=== PATIENT | female | born 1935 | race Hispanic/Latino ===

== ENCOUNTER → 2020-06-25 | Outpatient (CLI) | payer OTHER, MEDICARE | END | disposition home or self-care (01) | LOC: SHCH 13:20 | PROVIDERS: ATTEND Internal Medicine Cardiovascular Disease | DX: R55 Syncope and collapse (principal); I10 Essential (primary) hypertension; E78.5 Hyperlipidemia, unspecified | CPT/HCPCS: 93306; 93356 ==

== ENCOUNTER 2020-07-21 09:00 | Observation (INO) | payer OTHER, MEDICARE ==
[~2020-07-21] VITALS: Ht 165.1 cm; Wt 65.5 kg
[2020-07-21 09:51] LABS: BASOPHILS % (AUTO) 0.3 % (0.0-5.0); EOSINOPHILS % (AUTO) 1.6 % (0.0-8.0); HEMATOCRIT 40.2 % (36-48); LYMPHOCYTES % (AUTO) 19.5 % (21.0-51.0); MEAN CORPUSCULAR HGB CONC 31.6 g/dL (32.0-36.0); MONOCYTES % (AUTO) 8.8 % (3.0-13.0); NEUTROPHILS % (AUTO) 69.5 % (40.0-77.0); PLATELET COUNT (AUTO) 314 K/uL (130-400); RED BLOOD CELL COUNT(AUTO) 4.23 MIL/uL (4.00-5.50); RED CELL DISTRIBUTION WIDTH 12.6 % (11.0-15.5); WHITE BLOOD COUNT (AUTO) 7.6 K/uL (4.8-10.8)
[2020-07-21 09:57] LABS: CREATININE 1.1 mg/dL (0.5-1.5); POTASSIUM 4.1 mmol/L (3.5-5.1)
[2020-07-21 10:06] LABS: INR 0.9 (0.85-1.15); PROTHROMBIN TIME 9.8 SEC (9.6-11.6)
[2020-07-21 10:21] LABS: APPEARANCE,URINE CLOUDY (CLEAR); BILIRUBIN,URINE NEGATIVE (NEGATIVE); COLOR,URINE YELLOW (YELLOW); GLUCOSE, URINE (UA) NEGATIVE (NEGATIVE); KETONES,URINE NEGATIVE (NEGATIVE); LEUKOCYTE ESTERASE ,URINE SMALL (NEGATIVE); NITRATE,URINE POSITIVE (NEGATIVE); OCCULT BLOOD,URINE MODERATE (NEGATIVE); PH,URINE 5.5 (5.0-8.0); PROTEIN,URINE NEGATIVE (NEGATIVE); UROBILINOGEN,URINE 0.2 mg/dL (0.2-1.0)
[2020-07-21 10:24] LABS: BACTERIA,URINE Few /HPF (None Seen); RBC,URINE 0-1 /HPF (0-1); SQUAMOUS EPITHELIAL CELL,UR Rare /HPF (0-2)
[2020-07-21 10:25] LABS: AMORPHOUS SEDIMENT,UR Moderate /LPF (None Seen)
[2020-07-27 14:15] VITALS: BP 152/60
[2020-07-27] MEDS ORDERED: SIMV40TA59 PO (16:13)
[2020-07-27] MEDS ORDERED: AMLO-258 PO (16:15)
[2020-07-27] MEDS ORDERED: MECL-160 PO (16:15)
[2020-07-27] MEDS ORDERED: LISI40TA4 PO (16:15)
[2020-07-28] VITALS (24 sets, daily range): BP systolic 97–145; BP diastolic 41–85
[2020-07-28] MEDS ORDERED: CEFAZOLIN SODIUM 1 GM VIAL IVP ONE (08:00)
[2020-07-28] MEDS ORDERED: GENTAMICIN SULFATE 240 MG in SODIUM CHLORIDE 0.9% 100 ML IV PRN (08:00)
[2020-07-28] MEDS ORDERED: GENTAMICIN PROTOCOL PER PHARMACY IV SCH (08:00)
[2020-07-28] MEDS ORDERED: LACTATED RINGERS 1000ML 1,000 ML IV ONE ×2 (09:35→09:54)
[2020-07-28] MEDS ORDERED: CEFAZOLIN SODIUM 1 GM VIAL ONE ×3 (09:54→20:06)
[2020-07-28] MEDS ORDERED: GENTAMICIN SULFATE 240 MG in SODIUM CHLORIDE 0.9% 100 ML IV SCH (10:30)
[2020-07-28] MEDS ORDERED: CELECOXIB 200 MG CAP ONE (12:31)
[2020-07-28] MEDS ORDERED: ACETAMINOPHEN EXTRA STRENGTH 500 MG TABLET ONE (12:31)
[2020-07-28] MEDS ORDERED: KETOROLAC TROMETHAMINE 30MG/ML ONE (12:31)
[2020-07-28] MEDS ORDERED: TRANEXAMIC ACID 1000MG/10ML ONE ×2 (12:33→16:54)
[2020-07-28] MEDS ORDERED: GLYCOPYRROLATE 1 MG/5 ML SYRINGE ONE (14:12)
[2020-07-28] MEDS ORDERED: LIDOCAINE PF 2% 5ML ABBOJECT ONE (14:12)
[2020-07-28] MEDS ORDERED: SUCCINYLCHOLINE CHLORIDE 20 MG/ML 10 ML VIAL ONE ×2 (14:12→14:13)
[2020-07-28] MEDS ORDERED: PROPOFOL 10 MG/ML 20ML VIAL IV ONE (14:13)
[2020-07-28] MEDS ORDERED: ROCURONIUM 10MG/1ML SYR 10 MG/ML ML ONE (14:13)
[2020-07-28] MEDS ORDERED: ONDANSETRON HCL 4 MG/2 ML VIAL ONE (14:13)
[2020-07-28] MEDS ORDERED: FENTANYL CITRATE PF 50 MCG/1 ML 2ML VIAL ONE (14:13)
[2020-07-28] MEDS ORDERED: NEOSTIGMINE 5MG/5ML SYR IV ONE (14:13)
[2020-07-28] MEDS ORDERED: ROPIVACAINE 0.5% 5MG/ML 30ML IJ ONE (14:24)
[2020-07-28] MEDS ORDERED: TRAMADOL HCL 50 MG TABLET PO PRN (16:15)
[2020-07-28] MEDS ORDERED: ONDANSETRON HCL 4 MG/2 ML VIAL IVP PRN (16:15)
[2020-07-28] MEDS ORDERED: KETOROLAC TROMETHAMINE 15MG/ML IV PRN (16:15)
[2020-07-28] MEDS ORDERED: POTASSIUM CHLORIDE 20 MEQ ERTAB PO PRN (16:15)
[2020-07-28] MEDS ORDERED: POTASSIUM CHLORIDE 10% ELIXIR 20 MEQ/15 ML UDCUP PO PRN (16:15)
[2020-07-28] MEDS ORDERED: POTASSIUM CHLORIDE 20MEQ/100ML 100 ML IV PRN (16:15)
[2020-07-28] MEDS ORDERED: OXYCODONE HCL 5 MG TAB PO PRN ×2 (16:15)
[2020-07-28] MEDS ORDERED: LIDOCAINE HCL-MPF 1% 2ML VIAL IV PRN (16:15)
[2020-07-28] MEDS: ACETAMINOPHEN EXTRA STRENGTH 500 MG TABLET PO SCH ×2 (16:15→20:13)
[2020-07-28] MEDS ORDERED: FERROUS FUMARATE 324 MG TABLET PO PRN (16:15)
[2020-07-28] MEDS ORDERED: TEMAZEPAM 15 MG CAPSULE PO PRN (16:15)
[2020-07-28] MEDS ORDERED: CALCIUM CARBONATE 500 MG TABLET PO PRN (16:15)
[2020-07-28] MEDS ORDERED: DiphenhydrAMINE HCL 50 MG/ML VIAL IVP PRN (16:15)
[2020-07-28] MEDS: SODIUM CHLORIDE 0.9% 1000ML 1,000 ML IV SCH (18:00)
[2020-07-28] MEDS: MECLIZINE HCL 25 MG TABLET PO SCH (20:12)
[2020-07-28] MEDS: CELECOXIB 200 MG CAP PO SCH (20:13)
[2020-07-28] MEDS: FAMOTIDINE 20MG TAB 20 MG TAB PO SCH (20:13)
[2020-07-28] MEDS: CEFAZOLIN SODIUM 1 GM VIAL IVP SCH (20:13)
[2020-07-28] MEDS: ASPIRIN 81MG TAB.CHEW PO SCH (20:13)
[2020-07-28] MEDS: PREGABALIN 25 MG CAP PO SCH (20:13)
[2020-07-28] MEDS: SIMVASTATIN 20 MG TABLET PO SCH (21:37)
[2020-07-29] VITALS (7 sets, daily range): BP systolic 93–140; BP diastolic 41–72
[2020-07-29] MEDS: SODIUM CHLORIDE 0.9% 1000ML 1,000 ML IV SCH ×2 (01:43→12:15)
[2020-07-29] MEDS: CEFAZOLIN SODIUM 1 GM VIAL IVP SCH (04:22)
[2020-07-29 05:06] LABS: MEAN CORPUSCULAR HGB CONC 32.1 g/dL (32.0-36.0); MEAN CORPUSCULAR VOLUME 93.3 fL (79-99); RED CELL DISTRIBUTION WIDTH 12.2 % (11.0-15.5); WHITE BLOOD COUNT (AUTO) 8.3 K/uL (4.8-10.8)
[2020-07-29 05:34] LABS: CREATININE 0.9 mg/dL (0.5-1.5); POTASSIUM 3.9 mmol/L (3.5-5.1)
[2020-07-29] MEDS: POLYETHYLENE GLYCOL 3350 17 GM POWD.PACK PO SCH (08:43)
[2020-07-29] MEDS: ACETAMINOPHEN EXTRA STRENGTH 500 MG TABLET PO SCH ×3 (08:44→23:59)
[2020-07-29] MEDS: MECLIZINE HCL 25 MG TABLET PO SCH ×2 (08:44→20:08)
[2020-07-29] MEDS: ASPIRIN 81MG TAB.CHEW PO SCH (08:45)
[2020-07-29] MEDS: PREGABALIN 25 MG CAP PO SCH ×2 (08:45→20:08)
[2020-07-29] MEDS: CELECOXIB 200 MG CAP PO SCH ×2 (08:45→20:31)
[2020-07-29] MEDS: FAMOTIDINE 20MG TAB 20 MG TAB PO SCH ×2 (08:45→20:08)
[2020-07-29] MEDS ORDERED: LISINOPRIL 40 MG TABLET PO SCH (09:00)
[2020-07-29] MEDS ORDERED: AMLODIPINE BESYLATE 5 MG TAB PO SCH (09:00)
[2020-07-29] MEDS ORDERED: APIXABAN 2.5 MG TABLET PO SCH (11:30)
[2020-07-29] MEDS ORDERED: APIXABAN 2.5 MG TABLET PO ONE (12:46)
[2020-07-29] MEDS: APIXABAN 2.5 MG TABLET PO SCH (20:08)
[2020-07-29] MEDS: SIMVASTATIN 20 MG TABLET PO SCH (20:08)
[2020-07-30] VITALS: BP 93/44
[2020-07-30 03:57] VITALS: BP 97/45
[2020-07-30 08:07] VITALS: BP 127/62
[2020-07-30] MEDS: FAMOTIDINE 20MG TAB 20 MG TAB PO SCH (08:25)
[2020-07-30] MEDS: CELECOXIB 200 MG CAP PO SCH (08:25)
[2020-07-30] MEDS: APIXABAN 2.5 MG TABLET PO SCH (08:25)
[2020-07-30] MEDS: ACETAMINOPHEN EXTRA STRENGTH 500 MG TABLET PO SCH ×2 (08:27→17:21)
[2020-07-30] MEDS: POLYETHYLENE GLYCOL 3350 17 GM POWD.PACK PO SCH (08:27)
[2020-07-30] MEDS: PREGABALIN 25 MG CAP PO SCH (09:00)
[2020-07-30] MEDS ORDERED: LISINOPRIL 20 MG TABLET PO SCH (09:00)
[2020-07-30] MEDS: MECLIZINE HCL 25 MG TABLET PO SCH (09:00)
[2020-07-30 12:15] VITALS: BP 100/45
[2020-07-30] MEDS ORDERED: APIX2.5T PO (12:54)
[2020-07-30] MEDS ORDERED: HYDR-4457 PO (12:54)
[2020-07-30] MEDS ORDERED: BISACODYL 10 MG SUPP.RECT RC ONE (17:12)
[2020-07-31] MEDS ORDERED: BISACODYL 10 MG SUPP.RECT RC PRN (16:15)
== END 2020-07-30 19:49 ==
LOC: EDSTATUS 09:00 → OBSVTOIN 07-28 08:55 → DAHIP 07-28 08:55 → UNDOADMOB 07-28 08:55 → INTOOBSV 07-28 08:55 → EDSTATUS 07-28 09:00 → 3AH 07-28 17:59 → DAHIP 07-28 17:59
PROVIDERS: ADMIT Orthopaedic Surgery; ATTEND Orthopaedic Surgery
DX: M17.12 Unilateral primary osteoarthritis, left knee (principal); Z20.828 Contact with and (suspected) exposure to other viral communicable diseases; I47.1 Supraventricular tachycardia; I10 Essential (primary) hypertension; E78.5 Hyperlipidemia, unspecified; I44.0 Atrioventricular block, first degree; F32.9 Major depressive disorder, single episode, unspecified; I95.1 Orthostatic hypotension; R42 Dizziness and giddiness; D64.9 Anemia, unspecified; I49.40 Unspecified premature depolarization; Z79.899 Other long term (current) drug therapy
CPT/HCPCS: 27447; 36415 ×2; 71045; 80048 ×2; 81001; 83735; 84484; 85025; 85027; 85610; 87088; 87426; 87641; 88305; 88311; 93005; 96361 ×2; 96365; 96375; 96376; 97039 ×7; 97116 ×3; 97161; 97530; A4215; A4216; A4221; A4222; A4223; A4335; A4520; A4649 ×3; A4663; A4930 ×2; A5120; A9272; C1776; G0378 ×51; G8979; G8980; G8981; G8982; G8983; J0330 ×2; J0690 ×4; J1580; J1885; J2001; J2405; J2704; J2710; J2795; J3010; J3490 ×3; J7030; J7120 ×3; U0003